=== PATIENT | female | born 1995 | race African-American/Black ===

== ENCOUNTER 2016-11-17 18:00 | Emergency (ER) | payer MEDICAID ==
--- NOTE | 2016-11-17 18:25 | ER Document Report ---
ED Medical Screen (RME) - General Stated Complaint: ABDOMINAL PAIN Notes: Patient is a 21 year old female p/w lower abdominal pain for the past 3 days. denies nausea or vomiting She is on Depo and having on/off vaginal bleeding for the past 3 months described as spotting. Denies abnormal vaginal d/c also complaining of muscles spasms I have greeted and performed a rapid initial assessment of this patient. A comprehensive ED assessment and evaluation of the patient, analysis of test results and completion of the medical decision making process will be conducted by additional ED providers. TRAVEL OUTSIDE OF THE [place] IN LAST 30 DAYS: No - Related Data Allergies/Adverse Reactions: No Known Allergies Allergy (Verified 09/09/16 20:32) Past Medical History - Past Medical History Cardiac Medical History: Denies: Hx Coronary Artery Disease, Hx Heart Attack, Hx Hypertension Pulmonary Medical History: Reports: Hx Asthma Denies: Hx Bronchitis, Hx COPD, Hx Pneumonia Neurological Medical History: Denies: Hx Cerebrovascular Accident, Hx Seizures Renal/ Medical History: Reports: Hx Ovarian Cysts Musculoskeltal Medical History: Denies Hx Arthritis Psychiatric Medical History: Reports: Hx Depression Past Surgical History: Denies: Hx Hysterectomy - Immunizations Immunizations up to date: No Hx Diphtheria, Pertussis, Tetanus Vaccination: Yes - 07/2013
[2016-11-17 22:16] LABS: ABSOLUTE BASOPHILS # (AUTO) 0.1 10^3/uL (0.0-0.2); ABSOLUTE LYMPHOCYTES (AUTO) 4.1 10^3/uL (0.5-4.7); ABSOLUTE MONOCYTES (AUTO) 0.5 10^3/uL (0.1-1.4); ABSOLUTE NEUT (AUTO) 8.3 10^3/uL (1.7-8.2); BASOPHILS % (AUTO) 0.7 % (0-2); EOSINOPHILS % (AUTO) 0.4 % (0-6); HEMATOCRIT 37.8 % (36.0-47.0); HEMOGLOBIN 12.6 g/dL (12.0-15.5); LYMPHOCYTES % (AUTO) 31.2 % (13-45); MEAN CORPUSCULAR HEMOGLOBIN 30.3 pg (27.0-33.4); MEAN CORPUSCULAR HGB CONC 33.3 g/dL (32.0-36.0); MEAN CORPUSCULAR VOLUME 91 fl (80-97); RED BLOOD COUNT 4.16 10^6/uL (3.72-5.28); RED CELL DISTRIBUTION WIDTH 12.6 % (11.5-14.0); SEGMENTED NEUTROPHILS % (AUTO) 63.7 % (42-78)
[2016-11-17 22:19] LABS: APPEARANCE,URINE SLIGHTLY-CLOUDY; BILIRUBIN,URINE NEGATIVE (NEGATIVE); CALCIUM OXALATE CRYSTALS,URINE MODERATE /HPF; GLUCOSE, URINE NEGATIVE (NEGATIVE); KETONES,URINE TRACE mg/dL (NEGATIVE); LEUKOCYTE ESTERASE,URINE LARGE (NEGATIVE); NITRITE,URINE NEGATIVE (NEGATIVE); PROTEIN,URINE 30 mg/dL (NEGATIVE); URINE SPECIFIC GRAVITY 1.033
[2016-11-17 22:31] LABS: ALANINE AMINOTRANSFERASE 12 U/L (9-52); ALBUMIN 4.7 g/dL (3.5-5.0); ALKALINE PHOSPHATASE 49 U/L (38-126); ANION GAP 13 (5-19); ASPARTATE AMINO TRANSFERASE 19 U/L (14-36); BILIRUBIN,TOTAL 1.3 mg/dL (0.2-1.3); BLOOD UREA NITROGEN 14 mg/dL (7-20); CALCIUM 9.9 mg/dL (8.4-10.2); CARBON DIOXIDE 26 mmol/L (22-30); CHLORIDE 108 mmol/L (98-107); CREATININE RESULT 1.11 mg/dL (0.52-1.25); GLUCOSE 78 mg/dL (75-110); LIPASE 31.4 U/L (23-300); POTASSIUM 3.4 mmol/L (3.6-5.0); SODIUM 146.6 mmol/L (137-145)
--- NOTE | 2016-11-17 22:44 | ER Document Report ---
ED General - General Chief Complaint: Abdominal Pain Stated Complaint: ABDOMINAL PAIN Notes: Patient is a 21-year-old female presents with complaint of lower abdominal cramping and vaginal bleeding. She also is pain is in her legs. Patient has been on and off the tip a shot for several years now. She had been off for 5 months and then received a post shot again 3 months ago. She said since receiving again she's had a mini cramping and bleeding. Over last 3-4 days the bleeding has increased in a cramping pain has been worse. She is followed with her doctor and had an ultrasound but never returned her doctor get the ultrasound results. She's also had some other abdominal issues such as large amount of passing gas and intermittent abdominal pain. She had colonoscopy and upper endoscopy which were normal. She's had no fevers. She's not sexually active. No dysuria. No other complaints at this time. TRAVEL OUTSIDE OF THE [place] IN LAST 30 DAYS: No - Related Data Allergies/Adverse Reactions: No Known Allergies Allergy (Verified 09/09/16 20:32) Past Medical History - Social History Smoking Status: Never Smoker Chew tobacco use (# tins/day): No Frequency of alcohol use: None Drug Abuse: None Family History: Reviewed & Not Pertinent, DM, Malignancy, Other Patient has suicidal ideation: No Patient has homicidal ideation: No - Past Medical History Cardiac Medical History: Denies: Hx Coronary Artery Disease, Hx Heart Attack, Hx Hypertension Pulmonary Medical History: Reports: Hx Asthma Denies: Hx Bronchitis, Hx COPD, Hx Pneumonia Neurological Medical History: Denies: Hx Cerebrovascular Accident, Hx Seizures Renal/ Medical History: Reports: Hx Ovarian Cysts. Denies: Hx Peritoneal Dialysis Musculoskeltal Medical History: Denies Hx Arthritis Psychiatric Medical History: Reports: Hx Depression Past Surgical History: Denies: Hx Hysterectomy - Immunizations Immunizations up to date: No Hx Diphtheria, Pertussis, Tetanus Vaccination: Yes - 07/2013 Review of Systems - Review of Systems Notes: My Normal Review Basic REVIEW OF SYSTEMS: CONSTITUTIONAL : Denies fever, chills, or sweats. Denies recent illness. RESPIRATORY: Denies cough, cold, or chest congestion. Denies shortness of breath, difficulty breathing, or wheezing. GASTROINTESTINAL: Lower abdominal crampy pain. Denies nausea, vomiting, or diarrhea. Denies constipation. Last BM: GENITOURINARY: Denies difficulty urinating, painful urination, burning, frequency, or blood in urine. FEMALE GENITOURINARY: Abnormal Vaginal bleeding. MUSCULOSKELETAL: Denies neck or back pain or joint pain or swelling. SKIN: Denies rash or skin lesions. NEUROLOGICAL: Denies altered mental status or loss of consciousness. Denies headache. Denies weakness or paralysis or loss of use of either side. Denies problems with gait or speech. Denies sensory or motor loss. ALL OTHER SYSTEMS REVIEWED AND NEGATIVE. Physical Exam - Notes Notes: General Appearance: Well nourished, alert, cooperative, no acute distress, mild obvious discomfort. Vitals: reviewed, See vital signs table. Head: no swelling or tenderness to the head Eyes: PERRL, EOMI, Conjuctiva clear Mouth: No decreasd moisture Throat: No tonsillar inflammation, No airway obstruction, No lymphadenopathy Neck: Supple, no neck tenderness, No thyromegaly Lungs: No wheezing, No rales, No rhonci, No accessory muscle use, good air exchange bilaterally. Heart: Normal rate, Regular rythm, No murmur, no rub Abdomen: Normal BS, soft, No rigidity, mild suprapubic abdominal tenderness to palpation, No guarding, no rebound, no abdominal masses, no organomegaly Extremities: strength 5/5 in all extremities, good pulses in all extremities, no swelling or tenderness in the extremities, no edema. Skin: warm, dry, appropriate color, no rash Neuro: speech clear, oriented x 3, normal affect, responds appropriately to questions. Course - Laboratory Result Diagrams: 11/17/16 22:00 11/17/16 22:00 Laboratory results interpreted by me: 11/17/16 11/17/16 11/17/16 22:00 22:00 22:00 WBC 13.0 H Absolute Neutrophils 8.3 H Sodium 146.6 H Potassium 3.4 L Chloride 108 H Urine Protein 30 H Urine Ketones TRACE H Urine Urobilinogen 2.0 H Ur Leukocyte Esterase LARGE H - Transfer of Care Notes: 11/18/16 02:02 Patient's ultrasound was normal. Her pelvic exam was non-concerning. The prep is negative. Urinalysis shows a urinary tract infection. I suspect the patient 's pain and irregular bleeding is related to the DIP of shot. She's been on and off the tip of shot at irregular intervals. I think this is affected her menstrual cycle making it irregular and causing her enough painful cramping. I strongly encouraged her follow up with a cattle rancher for further evaluation and treatment. I have referred to the [facility]. Patient encouraged return to ER she has heavy bleeding, worsening pain, fevers, or feels unwell. Patient agrees with plan and will be discharged home. Dictation of this chart was performed using voice recognition software; therefore, there may be some unintended grammatical errors. Discharge - Discharge Clinical Impression: Pelvic pain, Vaginal bleeding Condition: Good Disposition: HOME, SELF-CARE Additional Instructions: Please take the antibiotics as prescribed. Please follow up with a cattle rancher for further workup of your abnormal bleeding. I have included the number to the [facility]. It is under the name Dr. Maura Hairston. Please return to the ER if you have fevers, heavy bleeding, or feel that your symptoms are worsening. Your urinalysis did show a UTI and therefore you will be placed on Keflex. Prescriptions: Cephalexin Monohydrate [Keflex 500 mg Capsule] 500 mg PO BID #14 capsule Forms: Return to Work Referrals: SIRI ARDON DO [Primary Care Provider] - Follow up as needed MAURA HAIRSTON MD [ACTIVE STAFF] - Follow up in 3-5 days
[2016-11-18] MEDS ORDERED: KETOROLAC TROMETHAMINE 60 MG/2 ML SDV IM ONE (00:59)
[2016-11-18] MEDS ORDERED: CEPHALEXIN 500 MG CAPSULE PO ONE (01:56)
[2016-11-18 02:10] VITALS: BP 112/68
[2016-11-18 02:58] LABS: CHLAM PCR NOT DETECTED (NOT DETECT)
== END 2016-11-18 02:10 | disposition home or self-care (01) ==
LOC: ER 18:00
DX: R10.2 Pelvic and perineal pain (principal); N93.8 Other specified abnormal uterine and vaginal bleeding; R10.30 Lower abdominal pain, unspecified
CPT/HCPCS: 99284; 96372; 36415; 87210; 83690; 84703; 85025; 80053; 81001; 87491; 87591; 76830; 93976; J1885

== ENCOUNTER 2017-03-26 15:02 | Emergency (ER) | payer MEDICAID ==
--- NOTE | 2017-03-26 15:38 | ER Document Report ---
ED Medical Screen (RME) - General Stated Complaint: STOMACH PAIN Time Seen by Provider: 03/26/17 15:35 Mode of Arrival: Ambulatory Information source: Patient Notes: pt presents with stomach pain, started sunday. Started penicillin on sunday. Reports vomiting, decreased uop, LBM?. Abdomen hurts with walking, lay down, breathing.C/O generalized abdominal pain, worse in epigastric area. TRAVEL OUTSIDE OF THE [place] IN LAST 30 DAYS: No - Related Data Allergies/Adverse Reactions: No Known Allergies Allergy (Verified 09/09/16 20:32) Past Medical History - Past Medical History Cardiac Medical History: Denies: Hx Coronary Artery Disease, Hx Heart Attack, Hx Hypertension Pulmonary Medical History: Reports: Hx Asthma Denies: Hx Bronchitis, Hx COPD, Hx Pneumonia Neurological Medical History: Denies: Hx Cerebrovascular Accident, Hx Seizures Renal/ Medical History: Reports: Hx Ovarian Cysts. Denies: Hx Peritoneal Dialysis Musculoskeltal Medical History: Denies Hx Arthritis Psychiatric Medical History: Reports: Hx Depression Past Surgical History: Denies: Hx Hysterectomy - Immunizations Immunizations up to date: No Hx Diphtheria, Pertussis, Tetanus Vaccination: Yes - 07/2013
[2017-03-26 16:03] LABS: ABSOLUTE BASOPHILS # (AUTO) 0.1 10^3/uL (0.0-0.2); ABSOLUTE LYMPHOCYTES (AUTO) 2.1 10^3/uL (0.5-4.7); ABSOLUTE MONOCYTES (AUTO) 0.6 10^3/uL (0.1-1.4); ABSOLUTE NEUT (AUTO) 5.1 10^3/uL (1.7-8.2); BASOPHILS % (AUTO) 0.8 % (0-2); EOSINOPHILS % (AUTO) 0.3 % (0-6); HEMATOCRIT 41.4 % (36.0-47.0); HEMOGLOBIN 14.3 g/dL (12.0-15.5); HGB HCT DIFFERENCE 1.5; LYMPHOCYTES % (AUTO) 26.8 % (13-45); MEAN CORPUSCULAR HEMOGLOBIN 30.8 pg (27.0-33.4); MEAN CORPUSCULAR HGB CONC 34.4 g/dL (32.0-36.0); MEAN CORPUSCULAR VOLUME 90 fl (80-97); MONOCYTES % (AUTO) 7.2 % (3-13); RED BLOOD COUNT 4.63 10^6/uL (3.72-5.28); RED CELL DISTRIBUTION WIDTH 12.4 % (11.5-14.0); SEGMENTED NEUTROPHILS % (AUTO) 64.9 % (42-78); WHITE BLOOD COUNT 7.9 10^3/uL (4.0-10.5)
[2017-03-26 16:25] LABS: ALANINE AMINOTRANSFERASE 20 U/L (9-52); ALBUMIN 4.7 g/dL (3.5-5.0); ALKALINE PHOSPHATASE 50 U/L (38-126); ANION GAP 15 (5-19); ASPARTATE AMINO TRANSFERASE 19 U/L (14-36); BILIRUBIN,DIRECT 0.4 mg/dL (0.0-0.4); BILIRUBIN,TOTAL 1.8 mg/dL (0.2-1.3); BLOOD UREA NITROGEN 10 mg/dL (7-20); CALCIUM 10.3 mg/dL (8.4-10.2); CARBON DIOXIDE 23 mmol/L (22-30); CHLORIDE 106 mmol/L (98-107); CREATININE RESULT 0.99 mg/dL (0.52-1.25); GLUCOSE 94 mg/dL (75-110); POTASSIUM 4.4 mmol/L (3.6-5.0); SODIUM 143.5 mmol/L (137-145); TOTAL PROTEIN 8.5 g/dL (6.3-8.2)
--- NOTE | 2017-03-26 17:13 | ER Document Report ---
ED General - General Mode of Arrival: Ambulatory TRAVEL OUTSIDE OF THE [place] IN LAST 30 DAYS: No <JESSICA WARD - Last Filed: 03/26/17 18:51> <GEMACARSONPATRIZIA - Last Filed: 03/27/17 05:22> - General Chief Complaint: Abdominal Pain Stated Complaint: STOMACH PAIN Time Seen by Provider: 03/26/17 15:35 Notes: Patient is a 21-year-old female comes to the ED complaining of severe abdominal pain 2 days. Patient states the pain is in her epigastric and right upper quadrant. The pain began on Sunday which is 2 days after her dental procedure where she had to molars extracted on her right lower jaw. Patient was given Tylenol with codeine and penicillin VK. She stopped taking those medications on Sunday because she thought that they may have been causing her symptoms. Patient states that she has not has not had a bowel movement in the last 4 days and she has not urinated in the last 3 days. Patient does note urinary urgency. Patient denies any vaginal pain or discharge. Denies sexual activity. Patient has had some nausea with an episode of vomiting today prior to arrival. She has a history of ovarian cysts. She takes Xanax and Lexapro daily medications. No known drug allergies. No smoking. No miscellaneous drug use. Patient states that she has been able to drink but unable to keep any food down. Denies any fever, URI, sore throat, dysphagia, cp, palp, syncope , sob, wheeze, cough, vaginal discharge/odor, or rash. (JESSICA WARD) - Related Data Allergies/Adverse Reactions: No Known Allergies Allergy (Verified 03/26/17 15:39) Past Medical History - General Information source: Patient - Social History Smoking Status: Never Smoker Chew tobacco use (# tins/day): No Drug Abuse: None Family History: Reviewed & Not Pertinent, DM, Malignancy, Other Patient has suicidal ideation: No Patient has homicidal ideation: No - Past Medical History Cardiac Medical History: Denies: Hx Coronary Artery Disease, Hx Heart Attack, Hx Hypertension Pulmonary Medical History: Reports: Hx Asthma Denies: Hx Bronchitis, Hx COPD, Hx Pneumonia Neurological Medical History: Denies: Hx Cerebrovascular Accident, Hx Seizures Renal/ Medical History: Reports: Hx Ovarian Cysts. Denies: Hx Peritoneal Dialysis Musculoskeltal Medical History: Denies Hx Arthritis Psychiatric Medical History: Reports: Hx Depression Past Surgical History: Denies: Hx Hysterectomy - Immunizations Immunizations up to date: No Hx Diphtheria, Pertussis, Tetanus Vaccination: Yes - 07/2013 <JESSICA WARD - Last Filed: 03/26/17 18:51> Review of Systems <JESSICA WARD - Last Filed: 03/26/17 18:51> <PATRIZIA FLETCHER - Last Filed: 03/27/17 05:22> - Review of Systems Notes: REVIEW OF SYSTEMS: CONSTITUTIONAL : Denies fever, chills, or sweats. Denies recent illness. EENT: Denies eye, ear, throat, or mouth pain or symptoms. Denies nasal or sinus congestion or discharge. Denies throat, tongue, or mouth swelling or difficulty swallowing. CARDIOVASCULAR: Denies chest pain. Denies palpitations or racing or irregular heart beat. Denies ankle edema. RESPIRATORY: Denies cough, cold, or chest congestion. Denies shortness of breath, difficulty breathing, or wheezing. GASTROINTESTINAL: see hpi GENITOURINARY: see hpi FEMALE GENITOURINARY: Denies vaginal bleeding, heavy or abnormal periods, irregular periods. Denies vaginal discharge or odor. MUSCULOSKELETAL: Denies back or neck pain or stiffness. Denies joint pain or swelling. SKIN: Denies rash, lesions or sores. HEMATOLOGIC : Denies easy bruising or bleeding. LYMPHATIC: Denies swollen, enlarged glands. NEUROLOGICAL: Denies confusion or altered mental status. Denies passing out or loss of consciousness. Denies dizziness or lightheadedness. Denies headache. Denies weakness or paralysis or loss of use of either side. Denies problems with gait or speech. Denies sensory loss, numbness, or tingling. Denies seizures. ALL OTHER SYSTEMS REVIEWED AND NEGATIVE. Dictation was performed using [employer] voice recognition software (JESSICA WARD) Physical Exam <JESSICA WARD - Last Filed: 03/26/17 18:51> <PATRIZIA FLETCHER - Last Filed: 03/27/17 05:22> - Vital signs Vitals: Temp Pulse Resp BP Pulse Ox 97.6 F 112 H 22 H 127/76 H 100 03/26/17 15:37 03/26/17 15:37 03/26/17 15:37 03/26/17 15:37 03/26/17 15:37 Notes: PHYSICAL EXAMINATION: GENERAL: Pt seen crying and in position c/o abd pain. Appears malnourished /underweight. HEAD: Atraumatic, normocephalic. EYES: Pupils equal round and reactive to light, extraocular movements intact, sclera anicteric, conjunctiva are normal. ENT: EAC clear b/l. TM's intact b/l without erythema, fluid, or perforation. Nares patent and without discharge. oropharynx clear without exudates. No tonsilar hypertrophy or erythema. Moist mucous membranes. No sinus tenderness. NECK: Normal range of motion, supple without lymphadenopathy. No nuchal rigidity /meningismus. LUNGS: Breath sounds clear to auscultation bilaterally and equal. No wheezes rales or rhonchi. HEART: Regular rate and rhythm without murmurs, rubs, gallops. ABDOMEN: No ascites, swelling, erythema, ecchymosis noted. Bowel sounds were present without tinkling sound/no bruits. + tenderness to RUQ and epigastric. Unable to adequately assess nguyen, but ?positive. No suprapubic tenderness. Rosvings/psoas/obturator neg. CVAT neg. No inguinal lymphadenopathy. Musculoskeletal: FROM to passive/active. Strength 5+/5. Extremities: No cyanosis, clubbing, or edema b/l. Peripheral pulses 2+. Capillary refill less than 3 seconds. NEUROLOGICAL: Cranial nerves grossly intact. Normal speech. Normal sensory, motor exams PSYCH: Normal mood, normal affect. SKIN: Warm, Dry, normal turgor, no rashes or lesions noted. (JESSICA WARD) Course - Laboratory Result Diagrams: 03/26/17 15:50 03/26/17 15:50 <JESSICA WARD - Last Filed: 03/26/17 18:51> - Laboratory Result Diagrams: 03/26/17 15:50 03/26/17 15:50 <PATRIZIA FLETCHER - Last Filed: 03/27/17 05:22> - Re-evaluation Re-evalutation: 03/26/17 18:51 Patient is an afebrile, well-hydrated, 21yo female who presents with abdominal pain NOS. Pt appears to be underweight. 1L NS given. Bentyl 20mg given IM. Abdominal US/Trans abd US/KUB ordered. KUB negative. US's pending. CBC unremarkable. CMP unremarkable. Reviewed with Dr. Mendosa who agreed with treatment plan at this time. (JESSICA WARD) On my evaluation patient is emotional and easily becomes tearful but she is not in any distress. Vital signs normalized. Upper abdominal ultrasound shows gallbladder sludge but no signs of cholecystitis. No leukocytosis or signs of obstruction. No ductal dilatation. Transvaginal ultrasound is unremarkable. Workup is nonspecific. Patient began telling me that she thinks part of her problem is stress, she states that her mother's health is poor, she has had custody issues with her child, she has been sleeping poorly and eating poorly as a result. Patient denies SI or HI. She states that she is already being treated for depression and she has good follow-up with psychiatry. She states that she feels better after just talking about it. Patient still does have nausea and pain in her abdomen intermittently, she is requesting medication for this. Patient will be started on omeprazole, Phenergan, small amount of pain medication for home, patient will be referred to surgery because of gallbladder sludge and upper abdominal symptoms, patient will follow up with her primary care, I discussed return precautions in detail, patient states that she feels much better and she is ready to go home now. Patient states understanding and agreement with plan. (PATRIZIA FLETCHER) - Vital Signs Vital signs: Temp Pulse Resp BP Pulse Ox 98.7 F 78 23 H 122/74 100 03/26/17 22:46 03/26/17 22:46 03/26/17 22:46 03/26/17 22:46 03/26/17 22:46 - Laboratory Laboratory results interpreted by me: 03/26/17 03/26/17 15:50 19:41 Calcium 10.3 H Total Bilirubin 1.8 H Total Protein 8.5 H Urine Protein 30 H Urine Bilirubin SMALL H Urine Urobilinogen 4.0 H Discharge <JESSICA WARD - Last Filed: 03/26/17 18:51> <PATRIZIA FLETCHER - Last Filed: 03/27/17 05:22> - Discharge Clinical Impression: Stress Abdominal pain Qualifiers: Abdominal location: upper abdomen, unspecified Qualified Code(s): R10.10 - Upper abdominal pain, unspecified Condition: Stable Disposition: HOME, SELF-CARE Additional Instructions: Your ultrasound does show gallbladder sludge, I recommend following up with the surgical clinic referral for additional management of this. Your lab workup does not show any acute abnormalities other than dehydration. Take the nausea medication as prescribed, take the omeprazole as prescribed, avoid alcohol, smoking, NSAIDs. Return to the ED for any concerning or worsening symptoms - vomiting blood, black bowel movements, severe abdominal pain, fever, etc. Prescriptions: Acetaminophen with Codeine [Tylenol #3 Tablet] 1 each PO Q4HP PRN #15 tablet PRN Reason: Omeprazole 40 mg PO DAILY #30 capsule. Promethazine HCl [Phenergan 25 mg Tablet] 1 - 2 tab PO Q6H PRN #20 tablet PRN Reason: Referrals: [facility] [Provider Group] - Follow up as needed
[2017-03-26] MEDS ORDERED: NORMAL SALINE 1000 ML 1,000 ML IV ONE (17:31)
[2017-03-26] MEDS ORDERED: DICYCLOMINE HCL INJ 20 MG/2 ML AMPULE IM ONE (17:31)
--- NOTE | 2017-03-26 18:01 | RADIOLOGY REPORT (SQ) ---
EXAM DESCRIPTION: KUB/ABDOMEN (SINGLE VIEW) COMPLETED DATE/TIME: 03/26/2017 5:50 pm REASON FOR STUDY: Abdominal pain COMPARISON: None. NUMBER OF VIEWS: One view. TECHNIQUE: Supine radiographic image of the abdomen acquired. LIMITATIONS: None. FINDINGS: BOWEL GAS PATTERN: Normal bowel gas pattern. No dilated loops. CALCIFICATIONS: No suspicious calcifications. SOFT TISSUES: No gross mass or suggestion of organomegaly. HARDWARE: None in the abdomen. BONES: No acute fracture. No worrisome bone lesions. OTHER: No other significant finding. IMPRESSION: NO RADIOGRAPHIC EVIDENCE FOR ACUTE ABDOMINAL DISEASE. TECHNICAL DOCUMENTATION: JOB ID: [id number] [employer]- All Rights Reserved
--- NOTE | 2017-03-26 19:28 | RADIOLOGY REPORT (SQ) ---
EXAM DESCRIPTION: U/S ABDOMEN COMPLETE W/O DOP COMPLETED DATE/TIME: 03/26/2017 7:06 pm REASON FOR STUDY: Abdominal pain COMPARISON: None. TECHNIQUE: Dynamic and static grayscale images acquired of the abdomen and recorded on PACS. Additio nal selected color Doppler and spectral images recorded. LIMITATIONS: None. FINDINGS: PANCREAS: No masses. Visualized pancreatic duct normal caliber. LIVER: No masses. Echotexture normal. LIVER VASCULATURE: Normal directional flow of the main portal vein and hepatic veins. GALLBLADDER: No stones. Endoluminal echogenic material consistent with sludge. Normal wall thicknes s. No pericholecystic fluid. ULTRASOUND-DETECTED SHELL'S SIGN: Negative. INTRAHEPATIC DUCTS AND COMMON DUCT: CBD and intrahepatic ducts normal caliber. No filling defects. INFERIOR VENA CAVA: Normal flow. AORTA: No aneurysm. RIGHT KIDNEY: Normal size. Normal echogenicity. No solid or suspicious masses. No hydronephros is. No calcifications. LEFT KIDNEY: Normal size. Normal echogenicity. No solid or suspicious masses. No hydronephrosi s. No calcifications. SPLEEN: Normal size. No solid masses. PERITONEAL AND PLEURAL SPACES: No ascites or effusions. OTHER: No other significant finding. IMPRESSION: Gallbladder sludge. No acute inflammatory changes. TECHNICAL DOCUMENTATION: JOB ID: [id number] [employer]- All Rights Reserved
--- NOTE | 2017-03-26 19:30 | RADIOLOGY REPORT (SQ) ---
EXAM DESCRIPTION: U/S NON OB PEL W/DOPPLER COMPLETED DATE/TIME: 03/26/2017 7:18 pm REASON FOR STUDY: Abdominal pain COMPARISON: None. TECHNIQUE: Dynamic and static grayscale images acquired of the pelvis via transabdominal approach an d recorded on PACS. Additional selected color Doppler and spectral images recorded. LIMITATIONS: None. FINDINGS: UTERUS: Contour normal. No mass. ENDOMETRIAL STRIPE: No focal or generalized thickening. No masses. CERVIX: No nabothian cysts. RIGHT OVARY: No abnormal masses. RIGHT OVARY DOPPLER: Normal arterial vascular flow without evidence for torsion. LEFT OVARY: No abnormal masses. LEFT OVARY DOPPLER: Normal arterial vascular flow without evidence for torsion. FREE FLUID: Trace endometrial free fluid. OTHER: Normal appearance of the bladder. MEASUREMENTS: UTERUS: 8.2 x 4.9 x 3.4 cm ENDOMETRIAL STRIPE: 8.5 mm RIGHT OVARY: 2.4 x 1.9 x 1.7 cm LEFT OVARY: 2.3 x 2.1 x 1.8 cm IMPRESSION: Trace endometrial free fluid.Normal appearance of the bladder. TECHNICAL DOCUMENTATION: JOB ID: [id number]- All Rights Reserved
[2017-03-26 20:09] LABS: APPEARANCE,URINE CLEAR; BILIRUBIN,URINE SMALL (NEGATIVE); GLUCOSE, URINE NEGATIVE (NEGATIVE); KETONES,URINE NEGATIVE (NEGATIVE); LEUKOCYTE ESTERASE,URINE NEGATIVE (NEGATIVE); NITRITE,URINE NEGATIVE (NEGATIVE); PROTEIN,URINE 30 mg/dL (NEGATIVE); URINE SPECIFIC GRAVITY 1.036
[2017-03-26] MEDS ORDERED: HYDROCODONE/ACETAMINOPHEN 5-325 MG 6 TAB/DSPK PO PRN (21:45)
[2017-03-26 22:49] VITALS: BP 122/74
== END 2017-03-26 22:46 | disposition home or self-care (01) ==
LOC: ER 15:02
DX: K82.8 Other specified diseases of gallbladder (principal); R10.11 Right upper quadrant pain; R10.13 Epigastric pain; F43.9 Reaction to severe stress, unspecified; R19.4 Change in bowel habit; R39.89 Other symptoms and signs involving the genitourinary system; R39.15 Urgency of urination; R11.2 Nausea with vomiting, unspecified; F32.9 Major depressive disorder, single episode, unspecified; J45.909 Unspecified asthma, uncomplicated; Z98.890 Other specified postprocedural states; Z87.42 Personal history of other diseases of the female genital tract; Z79.899 Other long term (current) drug therapy
CPT/HCPCS: 99284; 96372; 96360; 36415; 83690; 84703; 85025; 80053; 81001; 74000; 76700; 76856; 93976; J0500; J7030

== ENCOUNTER 2017-04-24 11:53 | Emergency (ER) | payer MEDICAID ==
[2017-04-24 13:11] LABS: ABSOLUTE EOSINOPHILS # (AUTO) 0.2 10^3/uL (0.0-0.6); ABSOLUTE LYMPHOCYTES (AUTO) 1.7 10^3/uL (0.5-4.7); ABSOLUTE MONOCYTES (AUTO) 0.3 10^3/uL (0.1-1.4); ABSOLUTE NEUT (AUTO) 4.3 10^3/uL (1.7-8.2); BASOPHILS % (AUTO) 0.5 % (0-2); EOSINOPHILS % (AUTO) 3.4 % (0-6); HEMATOCRIT 38.2 % (36.0-47.0); HGB HCT DIFFERENCE 0.8; LYMPHOCYTES % (AUTO) 25.6 % (13-45); MEAN CORPUSCULAR HEMOGLOBIN 30.8 pg (27.0-33.4); MEAN CORPUSCULAR HGB CONC 34.1 g/dL (32.0-36.0); MEAN CORPUSCULAR VOLUME 90 fl (80-97); MONOCYTES % (AUTO) 4.9 % (3-13); RED BLOOD COUNT 4.24 10^6/uL (3.72-5.28); RED CELL DISTRIBUTION WIDTH 12.4 % (11.5-14.0); SEGMENTED NEUTROPHILS % (AUTO) 65.6 % (42-78); WHITE BLOOD COUNT 6.6 10^3/uL (4.0-10.5)
[2017-04-24 13:25] LABS: ALANINE AMINOTRANSFERASE 16 U/L (9-52); ALBUMIN 4.5 g/dL (3.5-5.0); ALKALINE PHOSPHATASE 56 U/L (38-126); ANION GAP 12 (5-19); ASPARTATE AMINO TRANSFERASE 15 U/L (14-36); BILIRUBIN,DIRECT 0.2 mg/dL (0.0-0.4); BILIRUBIN,TOTAL 1.6 mg/dL (0.2-1.3); BLOOD UREA NITROGEN 6 mg/dL (7-20); CALCIUM 9.6 mg/dL (8.4-10.2); CARBON DIOXIDE 24 mmol/L (22-30); CHLORIDE 108 mmol/L (98-107); CREATININE RESULT 0.97 mg/dL (0.52-1.25); GLUCOSE 104 mg/dL (75-110); POTASSIUM 3.8 mmol/L (3.6-5.0); SODIUM 143.5 mmol/L (137-145); TOTAL PROTEIN 7.8 g/dL (6.3-8.2)
[2017-04-24 13:52] LABS: APPEARANCE,URINE CLEAR; BILIRUBIN,URINE NEGATIVE (NEGATIVE); GLUCOSE, URINE NEGATIVE (NEGATIVE); KETONES,URINE NEGATIVE (NEGATIVE); LEUKOCYTE ESTERASE,URINE NEGATIVE (NEGATIVE); NITRITE,URINE NEGATIVE (NEGATIVE); PROTEIN,URINE NEGATIVE (NEGATIVE); URINE SPECIFIC GRAVITY 1.028
[2017-04-24] MEDS ORDERED: HYDROCODONE/ACETAMINOPHEN 5-325 MG TABLET PO ONE (13:58)
--- NOTE | 2017-04-24 13:59 | ER Document Report ---
ED General - General Chief Complaint: Abdominal Pain Stated Complaint: STOMACH PAIN Time Seen by Provider: 04/24/17 12:09 Mode of Arrival: Ambulatory Information source: Patient Notes: 21-year-old female history of cholelithiasis presents with complaints of continued right upper quadrant abdominal pain. Patient notes she has an appointment with surgical list next week, denies any fevers or chills admits to pain in the mid epigastric region TRAVEL OUTSIDE OF THE [place] IN LAST 30 DAYS: No - HPI Onset: Last week Onset/Duration: Persistent Quality of pain: Achy, Burning Severity: Mild Pain Level: 1 Associated symptoms: Other Exacerbated by: Denies Relieved by: Denies Similar symptoms previously: Yes Recently seen / treated by doctor: Yes - Related Data Allergies/Adverse Reactions: No Known Allergies Allergy (Verified 04/24/17 12:45) Past Medical History - Social History Smoking Status: Never Smoker Cigarette use (# per day): No Chew tobacco use (# tins/day): No Smoking Education Provided: No Frequency of alcohol use: None Drug Abuse: None Family History: Reviewed & Not Pertinent, DM, Malignancy, Other Patient has suicidal ideation: No Patient has homicidal ideation: No - Past Medical History Cardiac Medical History: Denies: Hx Coronary Artery Disease, Hx Heart Attack, Hx Hypertension Pulmonary Medical History: Reports: Hx Asthma Denies: Hx Bronchitis, Hx COPD, Hx Pneumonia Neurological Medical History: Denies: Hx Cerebrovascular Accident, Hx Seizures Renal/ Medical History: Reports: Hx Ovarian Cysts. Denies: Hx Peritoneal Dialysis Musculoskeltal Medical History: Denies Hx Arthritis Psychiatric Medical History: Reports: Hx Depression - anxiety/mood d/o Surgical Hx: Negative Past Surgical History: Denies: Hx Hysterectomy - Immunizations Immunizations up to date: No Hx Diphtheria, Pertussis, Tetanus Vaccination: Yes - 07/2013 Review of Systems - Review of Systems Notes: REVIEW OF SYSTEMS: CONSTITUTIONAL : Denies fever, chills, or sweats. Denies recent illness. EENT: Denies eye, ear, throat, or mouth pain or symptoms. Denies nasal or sinus congestion or discharge. Denies throat, tongue, or mouth swelling or difficulty swallowing. CARDIOVASCULAR: Denies chest pain. Denies palpitations or racing or irregular heart beat. Denies ankle edema. RESPIRATORY: Denies cough, cold, or chest congestion. Denies shortness of breath, difficulty breathing, or wheezing. GASTROINTESTINAL: Admits to abdominal pain GENITOURINARY: Denies difficulty urinating, painful urination, burning, frequency, blood in urine, or discharge. FEMALE GENITOURINARY: Denies vaginal bleeding, heavy or abnormal periods, irregular periods. Denies vaginal discharge or odor. MUSCULOSKELETAL: Denies back or neck pain or stiffness. Denies joint pain or swelling. SKIN: Denies rash, lesions or sores. HEMATOLOGIC : Denies easy bruising or bleeding. LYMPHATIC: Denies swollen, enlarged glands. NEUROLOGICAL: Denies confusion or altered mental status. Denies passing out or loss of consciousness. Denies dizziness or lightheadedness. Denies headache. Denies weakness or paralysis or loss of use of either side. Denies problems with gait or speech. Denies sensory loss, numbness, or tingling. Denies seizures. PSYCHIATRIC: Denies anxiety or stress. Denies depression, suicidal ideation, or homicidal ideation. ALL OTHER SYSTEMS REVIEWED AND NEGATIVE. PHYSICAL EXAMINATION: GENERAL: Well-appearing, well-nourished and in no acute distress. HEAD: Atraumatic, normocephalic. EYES: Pupils equal round and reactive to light, extraocular movements intact, conjunctiva are normal. ENT: Nares patent, oropharynx clear without exudates. Moist mucous membranes. NECK: Normal range of motion, supple without lymphadenopathy LUNGS: Breath sounds clear to auscultation bilaterally and equal. No wheezes rales or rhonchi. HEART: Regular rate and rhythm without murmurs ABDOMEN: Soft, nontender, nondistended abdomen. No guarding, no rebound. No masses appreciated. Female : deferred Musculoskeletal: Normal range of motion, no pitting or edema. No cyanosis. NEUROLOGICAL: Cranial nerves grossly intact. Normal speech, normal gait. Normal sensory, motor exams PSYCH: Normal mood, normal affect. SKIN: Warm, Dry, normal turgor, no rashes or lesions noted. Dictation was performed using [employer] voice recognition software Physical Exam - Vital signs Vitals: Temp Pulse Resp BP Pulse Ox 98.5 F 88 18 120/78 99 04/24/17 11:56 04/24/17 11:56 04/24/17 11:56 04/24/17 11:56 04/24/17 11:56 Course - Re-evaluation Re-evalutation: 04/24/17 13:58 Physical examination did not note any significant abnormality, patient stated she was tender but showed no signs of pain on palpation, I will have her follow- up with the surgical list next week per previous appointment After performing a Medical Screening Examination, I estimate there is LOW risk for ACUTE APPENDICITIS, BOWEL OBSTRUCTION, ACUTE CHOLECYSTITIS, PERFORATED DIVERTICULITIS, INCARCERATED HERNIA, PANCREATITIS, PELVIC INFLAMMATORY DISEASE, PERFORATED ULCER, ECTOPIC , or TUBO-OVARIAN ABSCESS, thus I consider the discharge disposition reasonable. Also, there is no evidence or peritonitis , sepsis, or toxicity. I have reevaluated this patient multiple times and no significant life threatening changes are noted. The patient and I have discussed the diagnosis and risks, and we agree with discharging home with close follow-up with the understanding that symptoms and presentations can change. We also discussed returning to the Emergency Department immediately if new or worsening symptoms occur. We have discussed the symptoms which are most concerning (e.g., bloody stool, fever, changing or worsening pain, vomiting) that necessitate immediate return. - Vital Signs Vital signs: Temp Pulse Resp BP Pulse Ox 98.5 F 88 18 120/78 99 04/24/17 11:56 04/24/17 11:56 04/24/17 11:56 04/24/17 11:56 04/24/17 11:56 - Laboratory Result Diagrams: 04/24/17 12:45 04/24/17 12:45 Laboratory results interpreted by me: 04/24/17 04/24/17 12:45 12:45 Chloride 108 H BUN 6 L Total Bilirubin 1.6 H Urine Urobilinogen 2.0 H - Diagnostic Test Radiology reviewed: Image reviewed Discharge - Discharge Clinical Impression: Abdominal pain Qualifiers: Abdominal location: epigastric Qualified Code(s): R10.13 - Epigastric pain Condition: Stable Disposition: HOME, SELF-CARE Instructions: Abdominal Pain ([facility]) Additional Instructions: Please follow-up with the surgeon next week per your previous appointment return immediately if you have any worsening symptoms or any other concerns Prescriptions: Hydrocodone/Acetaminophen [Silex 5-325 mg Tablet] 1 tab PO Q6 #10 tablet
[2017-04-24 14:34] VITALS: BP 111/65
== END 2017-04-24 14:25 | disposition home or self-care (01) ==
LOC: ER 11:53
DX: R10.13 Epigastric pain (principal); R10.11 Right upper quadrant pain
CPT/HCPCS: 36415; 80053; 81001; 81025; 85025; 99284

== ENCOUNTER → 2017-04-30 | Outpatient (CLI) | payer MEDICAID ==
[2017-04-30 12:53] LABS: ABSOLUTE BASOPHILS # (AUTO) 0.1 10^3/uL (0.0-0.2); ABSOLUTE EOSINOPHILS # (AUTO) 0.1 10^3/uL (0.0-0.6); ABSOLUTE LYMPHOCYTES (AUTO) 2.1 10^3/uL (0.5-4.7); ABSOLUTE MONOCYTES (AUTO) 0.3 10^3/uL (0.1-1.4); ABSOLUTE NEUT (AUTO) 3.6 10^3/uL (1.7-8.2); BASOPHILS % (AUTO) 0.8 % (0-2); EOSINOPHILS % (AUTO) 1.3 % (0-6); HEMATOCRIT 37.7 % (36.0-47.0); HEMOGLOBIN 12.8 g/dL (12.0-15.5); HGB HCT DIFFERENCE 0.7; LYMPHOCYTES % (AUTO) 33.8 % (13-45); MEAN CORPUSCULAR HEMOGLOBIN 30.7 pg (27.0-33.4); MEAN CORPUSCULAR HGB CONC 33.9 g/dL (32.0-36.0); MEAN CORPUSCULAR VOLUME 90 fl (80-97); MONOCYTES % (AUTO) 5.6 % (3-13); RED BLOOD COUNT 4.17 10^6/uL (3.72-5.28); RED CELL DISTRIBUTION WIDTH 12.4 % (11.5-14.0); SEGMENTED NEUTROPHILS % (AUTO) 58.5 % (42-78); WHITE BLOOD COUNT 6.2 10^3/uL (4.0-10.5)
[2017-04-30 13:14] LABS: ALANINE AMINOTRANSFERASE 13 U/L (9-52); ALBUMIN 4.7 g/dL (3.5-5.0); ALKALINE PHOSPHATASE 66 U/L (38-126); ANION GAP 14 (5-19); ASPARTATE AMINO TRANSFERASE 20 U/L (14-36); BILIRUBIN,DIRECT 0.4 mg/dL (0.0-0.4); BILIRUBIN,TOTAL 1.5 mg/dL (0.2-1.3); BLOOD UREA NITROGEN 8 mg/dL (7-20); CALCIUM 9.8 mg/dL (8.4-10.2); CARBON DIOXIDE 23 mmol/L (22-30); CHLORIDE 107 mmol/L (98-107); CREATININE RESULT 0.92 mg/dL (0.52-1.25); GLUCOSE 77 mg/dL (75-110); LIPASE 68.9 U/L (23-300); SODIUM 143.6 mmol/L (137-145); TOTAL PROTEIN 8.5 g/dL (6.3-8.2)
== END ==
LOC: OD 11:08
PROVIDERS: ATTEND Surgery
DX: R19.7 Diarrhea, unspecified (principal)
CPT/HCPCS: 36415; 80053; 83690; 85025

== ENCOUNTER 2017-05-06 09:45 | Emergency (ER) | payer MEDICAID ==
[2017-05-06] MEDS ORDERED: KETOROLAC TROMETHAMINE 60 MG/2 ML SDV IM ONE (10:23)
[2017-05-06 10:25] VITALS: BP 108/81
--- NOTE | 2017-05-06 10:25 | ER Document Report ---
ED General - General TRAVEL OUTSIDE OF THE [place] IN LAST 30 DAYS: No - HPI Associated symptoms: Other - see above <DESMOND BECK - Last Filed: 05/06/17 10:20> <JOSE FRYE - Last Filed: 05/06/17 13:59> - General Chief Complaint: Chest Pain Stated Complaint: CHEST PAIN Notes: Patient is a 22 year old female who presents to the ED with complaints of RUQ and epigastric abdominal pain. Patient had an ultrasound don karla 03/26/17 that showed sludge in the gallbladder and was seen 1 month later for similar symptoms with no imagine done. Patient states she saw a surgeon on Sunday and was told she needed to provide a stool sample however patient states that she was unable to do so because she has not been able to eat much due to pain. Patient states she has had very small bowel movements. Patient is unsure how much weight she may have lost due to not eating. Patient also complains of nausea, migraine headache, SOB, chest pain, and dizziness. (DESMOND BECK) - Related Data Allergies/Adverse Reactions: No Known Allergies Allergy (Verified 04/24/17 12:45) Past Medical History - General Information source: Patient - Social History Smoking Status: Never Smoker Chew tobacco use (# tins/day): No Frequency of alcohol use: None Drug Abuse: None Family History: Reviewed & Not Pertinent, DM, Malignancy, Other - Past Medical History Cardiac Medical History: Denies: Hx Coronary Artery Disease, Hx Heart Attack, Hx Hypertension Pulmonary Medical History: Reports: Hx Asthma Denies: Hx Bronchitis, Hx COPD, Hx Pneumonia Neurological Medical History: Denies: Hx Cerebrovascular Accident, Hx Seizures Renal/ Medical History: Reports: Hx Ovarian Cysts. Denies: Hx Peritoneal Dialysis Musculoskeltal Medical History: Denies Hx Arthritis Psychiatric Medical History: Reports: Hx Depression - anxiety/mood d/o Past Surgical History: Denies: Hx Hysterectomy - Immunizations Immunizations up to date: No Hx Diphtheria, Pertussis, Tetanus Vaccination: Yes - 07/2013 <DESMOND BECK - Last Filed: 05/06/17 10:20> Review of Systems - Review of Systems Constitutional: No symptoms reported EENT: No symptoms reported Cardiovascular: See HPI, Chest pain, Dizziness Respiratory: See HPI, Short of breath Gastrointestinal: See HPI, Abdominal pain, Nausea, Poor appetite Genitourinary: No symptoms reported Female Genitourinary: No symptoms reported Musculoskeletal: No symptoms reported Skin: No symptoms reported Hematologic/Lymphatic: No symptoms reported Neurological/Psychological: See HPI, Headaches <DESMOND BECK - Last Filed: 05/06/17 10:20> Physical Exam - General General appearance: Appears well, Alert In distress: None - HEENT Head: Normocephalic, Atraumatic, Other - left posterior forhead tender Eyes: Normal Extraocular movements intact: Yes Pupils: PERRL Neck: Other - left posterior cervical muscle tender - Respiratory Respiratory status: No respiratory distress Chest status: Nontender Breath sounds: Normal Chest palpation: Normal - Cardiovascular Rhythm: Regular Heart sounds: Normal auscultation Murmur: No - Abdominal Inspection: Normal Distension: No distension Bowel sounds: Normal Tenderness: Tender - RUQ and epigastric tenderness to palpation, patient reports intermittent lower pelvic pain - Back Back: Normal - Extremities General upper extremity: Normal inspection, Normal ROM General lower extremity: Normal inspection, Normal ROM - Neurological Neuro grossly intact: Yes - Psychological Associated symptoms: Normal affect, Normal mood - Skin Skin Temperature: Warm Skin Moisture: Dry Skin Color: Normal <DESMOND BECK - Last Filed: 05/06/17 10:20> Course <DESMOND BECK - Last Filed: 05/06/17 10:20> - Laboratory Result Diagrams: 05/06/17 10:40 05/06/17 10:40 <JOSE FRYE - Last Filed: 05/06/17 13:59> - Re-evaluation Re-evalutation: 05/06/17 13:57 Over an hour ago the nurse told me she was encouraging the patient to drink fluids to get a urine specimen. I went to check on the patient at 1350 to see why she still had not provided a urine specimen and found the room had been cleaned and prepared for a new patient. No one admits to seeing her leave or could tell me when she walked out. Her gallbladder ultrasound today was read as completely normal, as is her lab work. (JOSE FRYE) - Vital Signs Vital signs: Temp Pulse Resp BP Pulse Ox 98 F 84 18 108/81 98 05/06/17 09:49 05/06/17 09:49 05/06/17 09:51 05/06/17 09:49 05/06/17 09:49 - Laboratory Laboratory results interpreted by me: 05/06/17 10:40 Sodium 146.4 H Chloride 113 H Discharge <DESMOND BECK - Last Filed: 05/06/17 10:20> <JOSE FRYE - Last Filed: 05/06/17 13:59> - Discharge Clinical Impression: Chronic right upper quadrant pain Condition: Stable Disposition: ELOPED [facility] Attestation: 05/06/17 13:59 I personally performed the services described in the documentation, reviewed and edited the documentation which was dictated to the scribe in my presence, and it accurately records my words and actions. (JOSE FRYE) Scribe Documentation - Scribe Written by Josy:: josy Hernandez, 05/06/2017, 1025 acting as scribe for :: Lizette <DESMOND BECK - Last Filed: 05/06/17 10:20>
[2017-05-06 10:50] LABS: ABSOLUTE BASOPHILS # (AUTO) 0.1 10^3/uL (0.0-0.2); ABSOLUTE EOSINOPHILS # (AUTO) 0.1 10^3/uL (0.0-0.6); ABSOLUTE LYMPHOCYTES (AUTO) 2.3 10^3/uL (0.5-4.7); ABSOLUTE MONOCYTES (AUTO) 0.4 10^3/uL (0.1-1.4); ABSOLUTE NEUT (AUTO) 3.8 10^3/uL (1.7-8.2); EOSINOPHILS % (AUTO) 1.7 % (0-6); HEMATOCRIT 36.6 % (36.0-47.0); HEMOGLOBIN 12.4 g/dL (12.0-15.5); HGB HCT DIFFERENCE 0.6; LYMPHOCYTES % (AUTO) 34.5 % (13-45); MEAN CORPUSCULAR HGB CONC 33.9 g/dL (32.0-36.0); MEAN CORPUSCULAR VOLUME 91 fl (80-97); MONOCYTES % (AUTO) 6.1 % (3-13); RED BLOOD COUNT 4.01 10^6/uL (3.72-5.28); RED CELL DISTRIBUTION WIDTH 12.4 % (11.5-14.0); SEGMENTED NEUTROPHILS % (AUTO) 56.7 % (42-78); WHITE BLOOD COUNT 6.7 10^3/uL (4.0-10.5)
[2017-05-06 11:10] LABS: ALANINE AMINOTRANSFERASE 19 U/L (9-52); ALBUMIN 4.5 g/dL (3.5-5.0); ALKALINE PHOSPHATASE 57 U/L (38-126); ANION GAP 9 (5-19); ASPARTATE AMINO TRANSFERASE 16 U/L (14-36); BILIRUBIN,DIRECT 0.3 mg/dL (0.0-0.4); BILIRUBIN,TOTAL 1.3 mg/dL (0.2-1.3); BLOOD UREA NITROGEN 11 mg/dL (7-20); CALCIUM 9.5 mg/dL (8.4-10.2); CARBON DIOXIDE 24 mmol/L (22-30); CHLORIDE 113 mmol/L (98-107); CREATININE RESULT 1.05 mg/dL (0.52-1.25); GLUCOSE 81 mg/dL (75-110); SODIUM 146.4 mmol/L (137-145); TOTAL PROTEIN 7.8 g/dL (6.3-8.2)
--- NOTE | 2017-05-06 11:24 | RADIOLOGY REPORT (SQ) ---
EXAM DESCRIPTION: U/S ABDOMEN LIMITED W/O DOP COMPLETED DATE/TIME: 05/06/2017 11:16 am REASON FOR STUDY: RUQ pain, getting worse, known sludge COMPARISON: 03/26/2017 TECHNIQUE: Dynamic and static grayscale images acquired of the abdomen and recorded on PACS. Alejandrao martinez selected color Doppler and spectral images recorded. LIMITATIONS: None. FINDINGS: PANCREAS: No masses. Visualized pancreatic duct normal caliber. LIVER: No masses. Echotexture normal. LIVER VASCULATURE: Normal directional flow of the main portal vein and hepatic veins. GALLBLADDER: No stones. Normal wall thickness. No pericholecystic fluid. ULTRASOUND-DETECTED SHELL'S SIGN: Negative. INTRAHEPATIC DUCTS AND COMMON DUCT: CBD and intrahepatic ducts normal caliber. No filling defects. INFERIOR VENA CAVA: Normal flow. AORTA: No aneurysm. RIGHT KIDNEY: Normal size. Normal echogenicity. No solid or suspicious masses. No hydronephrosis. No calcifications. PERITONEAL AND RIGHT PLEURAL SPACE: No ascites or effusions. OTHER: No other significant findings. IMPRESSION: NORMAL RIGHT UPPER QUADRANT ULTRASOUND. TECHNICAL DOCUMENTATION: JOB ID: [id number] [employer]- All Rights Reserved
== END 2017-05-06 14:03 | disposition left against medical advice (07) ==
LOC: ER 09:45
DX: G89.29 Other chronic pain (principal); R10.11 Right upper quadrant pain; R10.13 Epigastric pain; R07.9 Chest pain, unspecified; R51 Headache; R11.0 Nausea
CPT/HCPCS: 99281; 36415; 85025; 80053; 76705; J1885

== ENCOUNTER 2019-10-22 15:19 | Outpatient (CLI) | payer SELFPAY ==
[2019-10-22 16:18] LABS: APPEARANCE,URINE CLEAR; BILIRUBIN,URINE NEGATIVE (NEGATIVE); COLOR,URINE YELLOW; GLUCOSE, URINE NEGATIVE (NEGATIVE); KETONES,URINE NEGATIVE (NEGATIVE); LEUKOCYTE ESTERASE,URINE NEGATIVE (NEGATIVE); NITRITE,URINE NEGATIVE (NEGATIVE); PROTEIN,URINE NEGATIVE (NEGATIVE); URINE SPECIFIC GRAVITY 1.023
[2019-10-22 16:36] LABS: URINE AMPHETAMINES SCREEN NEGATIVE; URINE BARBITURATES SCREEN NEGATIVE; URINE BENZODIAZEPINES SCREEN NEGATIVE; URINE COCAINE SCREEN NEGATIVE; URINE MARIJUANA (THC) SCREEN NEGATIVE; URINE METHADONE SCREEN NEGATIVE; URINE PHENCYCLIDINE SCREEN NEGATIVE
--- NOTE | 2019-10-22 17:03 | RADIOLOGY REPORT (SQ) ---
EXAM DESCRIPTION: U/S OB 14+ TRNABD 1GES W/O DOP COMPLETED DATE/TIME: 10/22/2019 4:53 pm REASON FOR STUDY: NO CARE COMPARISON: None. TECHNIQUE: Static and Dynamic grayscale imaging performed of gravid uterus using transabdominal appr oac. Additional selected color Doppler and spectral images recorded. All stored on PACS. LIMITATIONS: None. FINDINGS: FETUSES SEEN:1 EGA: 19 week 6 day. Calculated using BPD,FL,HC,AC documented on images. Clinical dates 20 week 3 day . AUDREY: 03/11/2020. EFW: 313 grams PERCENTILE: Not applicable. Fetus less than or equal to 20 weeks gestation. LVP: 5.8 cm. PLACENTA: Posterior. GRADE: I PRESENTATION: Breech. ANATOMY: HEART RATE: 144 beats per minute. FOUR CHAMBER HEART: Visualized. THREE VESSEL CORD: Yes. CORD INSERTION: Visualized. KIDNEYS AND BLADDER: Visualized. Appear normal. STOMACH: Visualized. Appears normal. SPINE: Normal as visualized. BRAIN AND LATERAL VENTRICLES: Visualized. Appear normal. OTHER: No other significant finding. MATERNAL ADNEXA: Maternal ovaries not visualized. CERVICAL LENGTH: 2.3 cm. Closed. OTHER: No other significant finding. IMPRESSION: LIVING INTRAUTERINE . ESTIMATED GESTATIONAL AGE 19 WEEK 6 DAY. NO VISUALIZED ANOMALIES. Trimester of : Second trimester - 13 weeks 1 day to 27 weeks 6 days. TECHNICAL DOCUMENTATION: JOB ID: [id number] [employer]- All Rights Reserved Reading location - IP/workstation name: [email or web address]
[2019-10-22 17:07] LABS: ABSOLUTE LYMPHOCYTES (AUTO) 1.8 10^3/uL (0.5-4.7); ABSOLUTE MONOCYTES (AUTO) 0.6 10^3/uL (0.1-1.4); ABSOLUTE NEUT (AUTO) 10.8 10^3/uL (1.7-8.2); BASOPHILS % (AUTO) 0.2 % (0-2); EOSINOPHILS % (AUTO) 0.3 % (0-6); HEMATOCRIT 33.1 % (36.0-47.0); HEMOGLOBIN 11.5 g/dL (12.0-15.5); LYMPHOCYTES % (AUTO) 13.3 % (13-45); MEAN CORPUSCULAR HEMOGLOBIN 32.6 pg (27.0-33.4); MEAN CORPUSCULAR HGB CONC 34.8 g/dL (32.0-36.0); MEAN CORPUSCULAR VOLUME 94 fl (80-97); MONOCYTES % (AUTO) 4.6 % (3-13); PLATELET COUNT 239 10^3/uL (150-450); RED BLOOD COUNT 3.53 10^6/uL (3.72-5.28); RED CELL DISTRIBUTION WIDTH 13.5 % (11.5-14.0); SEGMENTED NEUTROPHILS % (AUTO) 81.6 % (42-78); TOTAL CELLS COUNTED % (AUTO) 100 %; WHITE BLOOD COUNT 13.2 10^3/uL (4.0-10.5)
[2019-10-22 17:37] LABS: CHLAM PCR NOT DETECTED (NOT DETECT)
[2019-10-22] MEDS ORDERED: RINGERS LACTATED IV ONE ×2 (18:00)
[2019-10-22] MEDS ORDERED: PROMETHAZINE HCL IV ONE ×2 (18:00)
[2019-10-22] MEDS ORDERED: PROMETHAZINE HCL INJ 25 MG/1 ML VIAL ONE (18:05)
[2019-10-22] MEDS ORDERED: RINGERS SOLUTION,LACTATED 1,000 ML IV PRN (18:10)
[2019-10-24 07:56] LABS: HEPATITS B SURFACE ANTIGEN Negative (Negative)
[2019-10-24 08:37] LABS: HEPATITIS C VIRUS AB <0.1 s/co ratio (0.0-0.9)
== END 2019-10-22 20:37 | disposition home or self-care (01) ==
LOC: LC 15:19
PROVIDERS: ATTEND Obstetrics & Gynecology
PROC: 4A1HXCZ Monitoring of Products of Conception, Cardiac Rate, External Approach (ICD-10-PCS; principal; 2019-10-22)
DX: O47.02 False labor before 37 completed weeks of gestation, second trimester (principal); O09.32 Supervision of pregnancy with insufficient antenatal care, second trimester; Z3A.20 20 weeks gestation of pregnancy
CPT/HCPCS: 59899; 86900; 86901; 36415; 86850; 85025; 86762; 86592; 81001; 87340; 86701; 80307; 87491; 87591; 86803; 86804; 76805; J2550

== ENCOUNTER → 2020-01-15 | Outpatient (CLI) | payer MEDICAID ==
--- NOTE | 2020-01-15 16:17 | RADIOLOGY REPORT (SQ) ---
EXAM DESCRIPTION: U/S OB 14+ TRNABD 1GES W/O DOP IMAGES COMPLETED DATE/TIME: 01/15/2020 2:00 pm REASON FOR STUDY: Z34.83 ENCOUNTER FOR SUPRVSN OF NORMAL , THIRD TRIMESTER Z34.83 ENCOUNTE R FOR SUPRVSN OF NORMAL , THIRD TRIM COMPARISON: OB ultrasound 10/22/2019 TECHNIQUE: Static and Dynamic grayscale imaging performed of gravid uterus using transabdominal appr oach. Additional selected color Doppler and spectral images recorded. All stored on PACS. LIMITATIONS: None. FINDINGS: FETUSES SEEN:1 EGA: 32 weeks 2 days Calculated using BPD,FL,HC,AC documented on images. No discrepancy with clinica l dates. AUDREY: 03/07/2020 EFW: 1686 grams PERCENTILE: 26th percentile STACY: Total 12.4 cm, LVP 5.5 x 8.5 cm PLACENTA: Fundal grade 2 PRESENTATION: Cephalic. ANATOMY: HEART RATE: 143 beats per minute. FOUR CHAMBER HEART: Visualized. THREE VESSEL CORD: Yes. CORD INSERTION: Visualized. KIDNEYS AND BLADDER: Visualized. Appear normal. STOMACH: Visualized. Appears normal. SPINE: Normal as visualized. BRAIN AND LATERAL VENTRICLES: Visualized. Appear normal. OTHER: No other significant finding. MATERNAL ADNEXA: Maternal ovaries not visualized. CERVICAL LENGTH: 3.2 cm Closed. OTHER: No other significant finding. IMPRESSION: LIVING INTRAUTERINE . ESTIMATED GESTATIONAL AGE 32 weeks 2 days NO VISUALIZED ANOMALIES. Trimester of : Third trimester - 28 weeks to delivery. TECHNICAL DOCUMENTATION: JOB ID: [id number] 2010 [employer]- All Rights Reserved Reading location - IP/workstation name: [email or web address]
== END ==
LOC: RAD 12:41
PROVIDERS: ATTEND Midwife
DX: Z34.83 Encounter for supervision of other normal pregnancy, third trimester (principal); Z3A.32 32 weeks gestation of pregnancy
CPT/HCPCS: 76805

== ENCOUNTER 2020-01-22 17:56 | Emergency (ER) | payer MEDICAID ==
--- NOTE | 2020-01-22 18:45 | ER Document Report ---
ED Psych Disorder / Suicide <CHAOYORDAN - Last Filed: 01/22/20 21:23> - General Mode of Arrival: Ambulatory Information source: Patient TRAVEL OUTSIDE OF THE [place] IN LAST 30 DAYS: No <SULLY SANTANA - Last Filed: 01/22/20 21:26> - General Chief Complaint: Psych Problem Stated Complaint: PSYCH EVAL Time Seen by Provider: 01/22/20 18:38 Primary Care Provider: [facility] [Outside] - Follow up in 3-5 days [facility] [Outside] - Follow up as needed BANDAR PARKINSON CNM [NO LOCAL MD] - Follow up as needed Notes: 24-year-old female patient presents to the emergency department chief complaint of suicidal ideations. Patient reports that she is approximately 33 weeks , she states she has a history of depression and anxiety, she states she has been off her medications since moving to the area. She states that she did live in [facility] quite a while ago and saw Herminia Pichardo at [facility] but she has not seen her lately. She reports that she has thought about cutting herself, she does have a history of cutting, she states she does not think she would follow through with any suicidal plan though because she has a 6-year-old daughter that she needs to live for. Patient is very tearful, stating that she is currently living in a hotel and is almost out of money. (SULLY SANTANA) - Related Data Allergies/Adverse Reactions: No Known Allergies Allergy (Verified 10/22/19 15:43) Past Medical History - General Information source: Patient - Social History Smoking Status: Never Smoker Family History: Reviewed & Not Pertinent, DM, Malignancy, Other - Past Medical History Cardiac Medical History: Denies: Hx Coronary Artery Disease, Hx Heart Attack, Hx Hypertension Pulmonary Medical History: Reports: Hx Asthma Denies: Hx Bronchitis, Hx COPD, Hx Pneumonia Neurological Medical History: Denies: Hx Cerebrovascular Accident, Hx Seizures Renal/ Medical History: Reports: Hx Ovarian Cysts. Denies: Hx Peritoneal Dialysis Musculoskeletal Medical History: Denies Hx Arthritis Psychiatric Medical History: Reports: Hx Depression - anxiety/mood d/o Past Surgical History: Denies: Hx Hysterectomy - Immunizations Immunizations up to date: No Hx Diphtheria, Pertussis, Tetanus Vaccination: Yes - 07/2013 <SULLY SANTANA - Last Filed: 01/22/20 21:26> Review of Systems - Review of Systems Constitutional: No symptoms reported EENT: No symptoms reported Cardiovascular: No symptoms reported Respiratory: No symptoms reported Gastrointestinal: No symptoms reported Genitourinary: No symptoms reported Female Genitourinary: No symptoms reported Musculoskeletal: No symptoms reported Skin: No symptoms reported Hematologic/Lymphatic: No symptoms reported Neurological/Psychological: See HPI <SULLY SANTANA - Last Filed: 01/22/20 21:26> Physical Exam <SULLY SANTANA - Last Filed: 01/22/20 21:26> - Vital signs Vitals: Temp Pulse Resp BP Pulse Ox 98.2 F 84 18 122/76 100 01/22/20 18:00 01/22/20 18:00 01/22/20 18:00 01/22/20 18:00 01/22/20 18:00 - Notes Notes: PHYSICAL EXAMINATION: GENERAL: Well-appearing, well-nourished and in no acute distress. HEAD: Atraumatic, normocephalic. EYES: Pupils equal round and reactive to light, extraocular movements intact, conjunctiva are normal. ENT: Nares patent, oropharynx clear without exudates. Moist mucous membranes. NECK: Normal range of motion, supple without lymphadenopathy LUNGS: Breath sounds clear to auscultation bilaterally and equal. No wheezes rales or rhonchi. HEART: Regular rate and rhythm without murmurs ABDOMEN: Gravid abdomen. No guarding, no rebound. No masses appreciated. Female : deferred Musculoskeletal: Normal range of motion, no pitting or edema. No cyanosis. NEUROLOGICAL: Cranial nerves grossly intact. Normal speech, normal gait. Normal sensory, motor exams PSYCH: Normal mood, normal affect. SKIN: Warm, Dry, normal turgor, no rashes or lesions noted. (SULLY SANTANA) Course - Laboratory Result Diagrams: 01/22/20 19:02 01/22/20 19:02 <YORDAN CHAO - Last Filed: 01/22/20 21:23> - Laboratory Result Diagrams: 01/22/20 19:02 01/22/20 19:02 <SULLY SANTANA - Last Filed: 01/22/20 21:26> - Re-evaluation Re-evalutation: Patient appears well, nontoxic, vital signs within normal limits. She does have a mildly elevated white blood count however this can be normal with . She has no obvious source of infection and has not been ill. Currently awaiting psych recommendations. Patient is alert, oriented, calm and cooperative. 01/22/20 21:26 Patient cleared by mental health team, she will be discharged home with reso urshiela. (SULLY SANTANA) - Vital Signs Vital signs: Temp Pulse Resp BP Pulse Ox 98.2 F 84 18 122/76 100 01/22/20 18:00 01/22/20 18:00 01/22/20 18:00 01/22/20 18:00 01/22/20 18:00 - Laboratory Laboratory results interpreted by me: 01/22/20 01/22/20 01/22/20 19:02 19:02 19:02 WBC 14.2 H RBC 3.15 L Hgb 9.9 L Hct 28.7 L Absolute Neuts (auto) 11.4 H Seg Neutrophils % 80.1 H Sodium 135.4 L Potassium 3.5 L BUN 4 L Albumin 3.2 L Urine Ketones 20 H Urine Urobilinogen 2.0 H Ur Leukocyte Esterase SMALL H Urine Ascorbic Acid 20 H Salicylates < 1.0 L Acetaminophen < 10 L Discharge <YORDAN CHAO - Last Filed: 01/22/20 21:23> <SULLY SANTANA - Last Filed: 01/22/20 21:26> - Discharge Clinical Impression: Suicidal ideation Condition: Stable Disposition: HOME, SELF-CARE Additional Instructions: You have been evaluated both medical and behavioral health teams and have been deemed appropriate for discharge. You provided local resource list of area providers including mobile crisis contact information. You have also been provided resource list for economic assistance programs. You are recommended to follow-up with outpatient mental health services in the form of therapy to build your positive coping skills. DEPRESSION: Your evaluation reveals that you have mental depression. While symptoms may be vague, they often include disturbance of sleep, fatigue, loss of appetite, and general loss of interest in life. While depression may be a side effect of drugs, or a reaction to a major change in your life, many cases have no known cause. If depression is acute, and related to a major loss in your life, you can expect it to clear completely with time. If you have been depressed a long time, are prone to repeated bouts of depression or low mood, or have been thinking of suicide, get help. Depression can be treated with anti-depressant medication and counselling. Long-term depression will often take a few weeks to clear, even with appropriate medication. Follow-up care is important. SUICIDAL IDEATION: Suicidal ideation is a common medical term for thoughts about suicide, which may be as detailed as a formulated plan, without the suicidal act itself. Although most people who undergo suicidal ideation do not commit suicide, some go on to make suicide attempts. The range of suicidal ideation varies greatly from fleeting to detailed planning, role playing, and unsuccessful attempts. While thoughts about suicide are common, most people do not carry out serious actions to commit suicide. Based upon your evaluation and discussion with you, we do not believe you are currently at risk to act upon your thoughts of suicide. You have agreed to return to the Emergency Department, at any time, if you feel inclined to act upon your suicidal thoughts. FOLLOW-UP CARE: If you have been referred to a physician for follow-up care, call the physicians office for an appointment as you were instructed or within the next two days. If you experience worsening or a significant change in your symptoms, notify the physician immediately or return to the Emergency Department at any time for re-evaluation. Referrals: BANDAR PARKINSON CNM [NO LOCAL MD] - Follow up as needed [facility] [Outside] - Follow up as needed [facility] [Outside] - Follow up in 3-5 days
[2020-01-22 19:22] LABS: ABSOLUTE EOSINOPHILS # (AUTO) 0.1 10^3/uL (0.0-0.6); ABSOLUTE LYMPHOCYTES (AUTO) 2.1 10^3/uL (0.5-4.7); ABSOLUTE MONOCYTES (AUTO) 0.7 10^3/uL (0.1-1.4); ABSOLUTE NEUT (AUTO) 11.4 10^3/uL (1.7-8.2); BASOPHILS % (AUTO) 0.1 % (0-2); EOSINOPHILS % (AUTO) 0.5 % (0-6); HEMATOCRIT 28.7 % (36.0-47.0); HEMOGLOBIN 9.9 g/dL (12.0-15.5); LYMPHOCYTES % (AUTO) 14.5 % (13-45); MEAN CORPUSCULAR HEMOGLOBIN 31.4 pg (27.0-33.4); MEAN CORPUSCULAR HGB CONC 34.5 g/dL (32.0-36.0); MEAN CORPUSCULAR VOLUME 91 fl (80-97); MONOCYTES % (AUTO) 4.8 % (3-13); PLATELET COUNT 276 10^3/uL (150-450); RED BLOOD COUNT 3.15 10^6/uL (3.72-5.28); RED CELL DISTRIBUTION WIDTH 12.6 % (11.5-14.0); SEGMENTED NEUTROPHILS % (AUTO) 80.1 % (42-78); TOTAL CELLS COUNTED % (AUTO) 100 %; WHITE BLOOD COUNT 14.2 10^3/uL (4.0-10.5)
[2020-01-22 19:40] LABS: AMORPHOUS SEDIMENT,URINE TRACE /HPF; APPEARANCE,URINE SLIGHTLY-CLOUDY; BILIRUBIN,URINE NEGATIVE (NEGATIVE); COLOR,URINE YELLOW; GLUCOSE, URINE NEGATIVE (NEGATIVE); KETONES,URINE 20 mg/dL (NEGATIVE); LEUKOCYTE ESTERASE,URINE SMALL (NEGATIVE); NITRITE,URINE NEGATIVE (NEGATIVE); PROTEIN,URINE NEGATIVE (NEGATIVE); URINE SPECIFIC GRAVITY 1.016
[2020-01-22 19:41] LABS: ACETAMINOPHEN < 10 ug/mL (10-30); ALBUMIN 3.2 g/dL (3.5-5.0); ALCOHOL < 10 mg/dL (NONE DETECTED); ALKALINE PHOSPHATASE 122 U/L (38-126); ANION GAP 5 (5-19); ASPARTATE AMINO TRANSFERASE 19 U/L (14-36); BILIRUBIN,TOTAL 0.8 mg/dL (0.2-1.3); BLOOD UREA NITROGEN 4 mg/dL (7-20); CARBON DIOXIDE 23 mmol/L (22-30); CHLORIDE 107 mmol/L (98-107); GLUCOSE 103 mg/dL (75-110); POTASSIUM 3.5 mmol/L (3.6-5.0); SALICYLATE < 1.0 mg/dL (2.0-20.0); TOTAL PROTEIN 6.3 g/dL (6.3-8.2)
[2020-01-22 19:48] LABS: URINE AMPHETAMINES SCREEN NEGATIVE; URINE BARBITURATES SCREEN NEGATIVE; URINE BENZODIAZEPINES SCREEN NEGATIVE; URINE COCAINE SCREEN NEGATIVE; URINE METHADONE SCREEN NEGATIVE; URINE PHENCYCLIDINE SCREEN NEGATIVE
[2020-01-22 19:51] LABS: URINE MARIJUANA (THC) SCREEN UNCONFIRMED POSITIVE
--- NOTE | 2020-01-22 21:02 | PSYCHOLOGICAL NOTE ---
Psych Note - Psych Note Date seen by psych provider: 01/22/20 Time seen by psych provider: 19:25 Psych Note: Reason for Consult: Suicidal ideation Patient presented voluntarily to [facility] for suicidal ideation [facility]. Patient reports she has passive suicidal ideation (ie no plans mean or intent) that comes and goes. She reports she is not surprised about these thoughts, she has had them before. She denies intent: "I told them I have thoughts, but I would never do it...I just think of my daughter and hear her voice telling me how much she loves me...plus I am ...I would never do that." She continued to disclose; "they asked me, if I did what would I do and I told them I would probable cut because I am comfortable with that... I have a history of cutting to cope...but I have not done it in a long time." Patient identifies her stressors as being homeless and currently living at [place] [id number] and only has enough money for a few more days. She continued to report she also has family discord with her mother. She states she has her 6 year old daughter living with her mother so she does not have her daughter living in unstable environment (ie homeless). She reports once she is out of money she has no other options but living on the street. She states she has lived on the street before but never and that scares her. She states she has a diagnosis of biploar but has been off medication for 3 years. Patient is alert and orientated to person, place, time and circumstance. Mood is dysphoric with tearful affect. Patient reports passive suicidal ideation (ie no plans, means or intent) that comes and goes. She reports a history of maladaptive coping skill of cutting that she has not engaging in. Patient denies homicidal ideation. Delusions are absent and behaviors congruent with an intact reality based presentation i.e. organized linear thought process. Eye contact is well-maintained. Conversational speech is within normal rate, tone and prosody. Intellectual abilities appear to be within the average range. Attention and concentration is good. Insight, judgment, impulse control is currently good as evidenced by patient honestly discussing her passive suicidal thoughts with her provider when asked, following through in coming to [facility] ED voluntarily to be evaluated, discussing her symptoms and understanding connection between increased hormones of her affecting increased symptoms, using positive coping skills and not relying on maladaptive. Impression/Plan: patient is cleared from acute psychiatric services. Patient discloses passive suicidal ideation but admittedly denies intent. She states when she was asked what she would do she told them about her maladaptive coping of cutting (She has not relapsed). Patient has not been on medication for her bipolar diagnosis for 3 years and is currently 33 and half weeks ; her presentation does not support or indicant emergent need of pharmaceutical intervention. Patient is recommended for therapeutic services to build her positive coping skills. Patient engaged appropriately and openly discussed her triggers demonstrating strong insight. She has socioeconomic stressor of being homeless and running out of money for the hotel in a few days, in addition to family discord. Patient has been provided local resource list of area provider to help with establishing outpatient therapeutic services and the street sheet that has socioeconomic resources. Unfortunately currently many resources are not available because of COVID (ie the homeless custodial is currently closed). Dr. Puente was consulted on the care and management of this patient; attending physician is in agreement with recommendations and disposition.
--- NOTE | 2020-01-22 21:25 | EKG REPORT ---
SEVERITY:- NORMAL ECG - SINUS RHYTHM : Confirmed by: Radha Mejias MD 22-Jan-2020 21:23:59
[2020-01-22 21:44] VITALS: BP 109/69
== END 2020-01-22 21:44 | disposition home or self-care (01) ==
LOC: ER 17:56
DX: O99.343 Other mental disorders complicating pregnancy, third trimester (principal); R45.851 Suicidal ideations; F32.9 Major depressive disorder, single episode, unspecified; F41.9 Anxiety disorder, unspecified; Z91.5 Personal history of self-harm; Z3A.33 33 weeks gestation of pregnancy; O99.513 Diseases of the respiratory system complicating pregnancy, third trimester; J45.909 Unspecified asthma, uncomplicated
CPT/HCPCS: 36415; 80053; 80307; 81001; 85025; 93005; 93010; 99285